=== PATIENT | female | born 1935 | race Caucasian/White ===

== ENCOUNTER 2024-01-20 08:39 | Outpatient (REF) | payer MEDICARE, SELFPAY ==
--- NOTE | ~2024-01-20 | XR_ITS ---
EXAMINATION: XR KNEE, RIGHT CLINICAL INFORMATION: Pain in right knee COMPARISON: None available. TECHNIQUE: Four views of the right knee. FINDINGS: No fracture. Positioning on the lateral view limits evaluation for a joint effusion. There is moderate to marked narrowing of the lateral joint compartment with marginal osteophyte formation. There is mild narrowing of the patellofemoral joint compartment with marginal osteophyte formation. Calcification of the arterial arteries is seen indicative of atherosclerotic disease. 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
== END 2024-01-20 08:40 | disposition home or self-care (01) ==
LOC: HO.HOSX 08:39
PROVIDERS: Visit Provider Orthopaedic Surgery
DX: M25.561 Pain in right knee (principal); M54.50 Low back pain, unspecified; M79.604 Pain in right leg
CPT/HCPCS: 73562

== ENCOUNTER 2024-01-20 11:04 | Outpatient (AMB) | payer BC, MEDICAID, SELFPAY ==
--- NOTE | 2024-01-20 11:06 | MHC.OFFVIS ---
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 Patient describes her back pain as sharp in nature. Her pain has gotten worse over the last 6 months in spite of continued non operative treatments. She has tried Tylenol and anti-inflammatory medicines which gave her minimal relief. She has also done physical therapy which aggravated her pain. The patient did undergo left total knee replacement surgery several years ago. She denies any pain in her left knee. She does have intermittent discomfort in her right knee. The patient states that at this point her right knee discomfort is tolerable to her. She does walk with a cane because of the weakness in her right leg. She states that she has fallen several times because of the weakness as well. as a new patient to reestablish care with Dr. Duncan for right knee pain. Patient reports her pain has been going on for about 3-4 months and is a 7-8 on the 1-10 pain scale. She states she feels more discomfort than pain, feels like she is going to fall. Now experiencing right hip pain and right foot pain. Patient started using a cane to help with ambulation. Taking Advil for pain. Academic Interventionist Required: No Accompanied by: Daughter Allergies No Known Allergies Allergy (Verified 01/20/24 11:21) [facility] Social History (Updated 01/20/24 @ 11:19 by JUANCARLOS Mcelroy) Alcohol intake: current Alcohol intake frequency: holidays/special occasions only Alcohol type: wine Patient Tobacco Use Status: Never used Tobacco Current occupation: right handed Physical Exam Vital Signs: BMI result Body Mass Index 24.6 Const Other: Well-nourished well-developed very friendly female awake alert and oriented x3 in no acute distress Back/Spine/Pelvis Other: Low back examination shows right-sided paraspinal muscle tenderness, pain with range of motion, positive straight leg raise test on the right at 70 degrees, 4/5 strength with testing of her right hip flexors and knee extensors when compared to 5/5 strength on her left side Extrem Other: Right knee examination shows a minimal effusion, mild crepitus with range of motion, no instability Results Reviewed Results Reviewed: X-rays of the patient's right knee show moderate joint space narrowing most significant in the lateral compartment, no acute bony abnormalities Assessment & Plan Assessment & Plan (1) Low back pain radiating to right lower extremity: Code(s): M54.50 - Low back pain, unspecified; M79.604 - Pain in right leg Plan Ms. Graf presents with progressively worsening low back pain which radiates into her right leg most likely due to lumbar stenosis or a disc herniation. Thus, I will send the patient for an MRI of her lumbar spine for further evaluation. She also has intermittent discomfort in her right knee due to degenerative joint disease. At this point the patient's right knee discomfort is tolerable to her. We will hold off on a cortisone injection. She will contact me prior to the MRI should her symptoms worsen in any way. Feel free to call me at any time should questions regarding her orthopedic management arise. I spent 22 minutes in reviewing the patient's records and imaging studies, seeing the patient and documenting in the medical record. Orders: Orders MR lumbar spine wo con Today M54.50 - Low back pain, unspecified, M79.604 - Pain in right leg XR knee RT 3V Today M25.561 - Pain in right knee Coding Level of Care Code New Pt Level 2 (82027) Diagnoses Low back pain radiating to right lower extremity M54.50; M79.604
[2024-01-20 11:16] VITALS: BMI 24.6
== END 2024-01-20 11:42 | disposition home or self-care (01) ==
PROVIDERS: Visit Provider Orthopaedic Surgery
DX: M54.50 Low back pain, unspecified (principal); M79.604 Pain in right leg
CPT/HCPCS: 99202

== ENCOUNTER 2024-02-26 13:35 | Outpatient (AMB) | payer BC, MEDICAID, SELFPAY ==
--- NOTE | 2024-02-26 13:38 | HO.SPINEOV ---
Intake Visit Reasons: low back pain Intake Note: Ms. Graf is here today c/o Low back pain. 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 Duncan, Thank you for referring Sharmin to our office today. She is a pleasant 88-year-old female who comes in today with a chief complaint of low back pain with some associated pains into her right lower extremity. When describing her right-sided pain she says it is more of a tightness in her right hip. She feels this exacerbated by walking, and alleviated by resting. She has now to the point where she needs to utilize a cane in order to ambulate properly. She states the pain is not too severe, and is well controlled with Advil. She also utilizes yoga classes at the local senior center in order to help her stay mobile. She states that she still completes all of her ADLs herself, and is able to drive without issue. She has not yet been to physical therapy, and states she has not had any injections in her lumbar spine. She comes in today inquiring what, if any, measures can be taken in order to help to alleviate her symptoms. PMH: History prolapsed bladder in July of 2023. History of hypothyroidism, hyperlipidemia. Social hx:[] Medications: Advil, atorvastatin, levothyroxine, centrum silver. Allergies: NKDA. Physical exam: The patient has 5/5 strength in her upper and lower extremities. No sensational deficits. Reflexes are 2+ intact. The patient is able to ambulate well, but does have a somewhat antalgic gait that looks more to be related to rigidity than pain. (+) Ruth finger test on the right, (-) Oscar's, (-) straight leg raise bilaterally. Imaging review: MRI of the lumbar spine completed at [facility] in 2023 shows healed compression deformity at L2, degenerative disc disease at L3-4 with mild-moderate bilateral foraminal stenosis. 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 Impression: Sharmin is a pleasant 88-year-old female who is suffering from some right-sided low back/right hip pain. When describing the pain it sounds more like she is describing cramping in the right hip than pain. It has not appear to correlate with any dermatomal distribution that can be pinpointed when reviewing her MRI imaging. She may have a right hip pathology, but I would say sacroiliac dysfunction is relatively unlikely given her ability to perform Oscar's on the right without pain. I informed the patient that I believe the best course of action to take at this time would be to send her for a course of physical therapy for the stenosis seen on her lumbar MRI, and to follow up with Dr. Duncan if she would like to further discuss her orthopedic issues after physical therapy. Thank you for allowing us to care for your patient. The total time spent with this visit with this patient was 45 minutes reviewing history, physical exam, MRI imaging review, and implementation of treatment plan or further diagnostic testing Eulogio Alaniz MD,PhD [facility] Orders: Orders PT Evaluation and Treatment Today M48.00 - Spinal stenosis, site unspecified Coding Level of Care Code New Pt Level 4 (91500) Diagnoses Spinal stenosis M48.00
== END 2024-02-26 14:18 | disposition home or self-care (01) ==
PROVIDERS: PCP Internal Medicine; Referring Provider Orthopaedic Surgery; Visit Provider Physician Assistant
DX: M48.00 Spinal stenosis, site unspecified (principal)
CPT/HCPCS: 99204

== ENCOUNTER → 2024-02-26 13:35 | Outpatient (BNVA) | payer BC, MEDICAID, SELFPAY | PROVIDERS: PCP Internal Medicine; Referring Provider Orthopaedic Surgery; Visit Provider Physician Assistant ==